=== PATIENT | male | born 1975 | race Caucasian/White ===

== ENCOUNTER 2023-01-27 13:30 | Emergency (ER) | payer MEDICAID ==
[~2023-01-27] VITALS: Ht 172.7 cm; Wt 65.0 kg
[2023-01-27 13:35] VITALS: BP 142/92; PULSE 112; RESP 24; TEMP 98.4; O2SAT 94
[2023-01-27] MEDS ORDERED: ACETAMINOPHEN 325MG TABLET PO STA (15:33)
[2023-01-27] MEDS ORDERED: NAPR-681 PO (16:23)
== END 2023-01-27 16:36 | disposition home or self-care (01) ==
LOC: ER 13:30
DX: M47.9 Spondylosis, unspecified (principal)
CPT/HCPCS: 71046; 72100; 99284